=== PATIENT | female | born 1965 | race Caucasian/White ===

== ENCOUNTER 2022-08-02 18:12 | Emergency (ER) | payer SELFPAY ==
[~2022-08-02] VITALS: Ht 165.1 cm; Wt 104.3 kg
--- NOTE | 2022-08-02 18:34 | NUR ---
[email or web address], medical screening exam in progress
[2022-08-02] MEDS ORDERED: KETOROLAC TROMETHAMINE 30 MG INJ ONE (18:37)
[2022-08-02] MEDS ORDERED: KETOROLAC TROMETHAMINE 30 MG INJ IM ONE (18:45)
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
--- NOTE | 2022-08-02 19:21 | NUR ---
Patient is resting comfortably on gurney with eyes closed, laying on her right side, pending results and disposition. Nursing SBAR given to ER furnace charger Adrian.
[2022-08-02] MEDS ORDERED: NAPR-1009 PO (19:28)
--- NOTE | 2022-08-02 19:40 | NUR ---
Pt is noted off the unit as she is been discharge to Home with all discharge instruction given.
[2022-08-02 19:45] VITALS: BP 112/68
== END 2022-08-02 19:46 | disposition home or self-care (01) ==
LOC: ER 18:16
DX: S83.92XA Sprain of unspecified site of left knee, initial encounter (principal); S70.02XA Contusion of left hip, initial encounter; E66.01 Morbid (severe) obesity due to excess calories; Z68.38 Body mass index [BMI] 38.0-38.9, adult; Z88.0 Allergy status to penicillin; Z88.5 Allergy status to narcotic agent; Z79.1 Long term (current) use of non-steroidal anti-inflammatories (NSAID); W18.39XA Other fall on same level, initial encounter; Y93.89 Activity, other specified; Y92.89 Other specified places as the place of occurrence of the external cause; Y99.8 Other external cause status
CPT/HCPCS: 99284; 73502; 73564; 96372; J1885; A4663